=== PATIENT | female | born 1995 | race African-American/Black ===

== ENCOUNTER 2020-04-22 19:20 | Outpatient (CLI) | payer BC ==
[2020-04-22 20:05] LABS: BASOPHILS # (AUTO) 0.1 /CMM (0.0-0.2); BASOPHILS % (AUTO) 0.9 % (0.0-2.0); EOSINOPHILS % (AUTO) 1.2 % (0.0-6.0); HEMATOCRIT 41 % (33-45); HEMOGLOBIN 13.7 g/dL (11.5-14.8); LYMPHOCYTES # (AUTO) 2.9 /CMM (0.8-4.8); LYMPHOCYTES % (AUTO) 40.1 % (20.0-44.0); MEAN CORPUSCULAR HGB CONC 34 g/dl (31.0-36.0); MEAN CORPUSCULAR VOLUME 91 fL (82-100); MONOCYTES # (AUTO) 0.6 /CMM (0.1-1.30); MONOCYTES % (AUTO) 8.6 % (2.0-12.0); NEUTROPHILS # (AUTO) 3.5 /CMM (1.8-8.9); NEUTROPHILS % (AUTO) 49.2 % (43.0-81.0); PLATELET COUNT (AUTO) 340 /CMM (150-450); RED BLOOD CELL COUNT(AUTO) 4.51 MIL/uL (4.0-5.2); WHITE BLOOD COUNT (AUTO) 7.2 K/uL (4.3-11.0)
[2020-04-22 20:25] LABS: ALBUMIN 3.9 g/dL (3.4-5.0); BILIRUBIN,TOTAL 0.2 mg/dL (0.2-1.0); CALCIUM, SERUM 8.9 mg/dL (8.5-10.1); CREATININE 0.9 mg/dL (0.6-1.3); POTASSIUM 4.2 mmol/L (3.5-5.1); TOTAL PROTEIN, SERUM 7.7 g/dL (6.4-8.2)
[2020-04-22 20:34] LABS: THYROID STIMULATING HORMONE 1.578 uIU/mL (0.358-3.74)
== END 2020-04-22 23:56 | disposition home or self-care (01) ==
LOC: LAB 19:20
PROVIDERS: ATTEND Family Medicine
DX: Z00.01 Encounter for general adult medical examination with abnormal findings (principal); Z11.3 Encounter for screening for infections with a predominantly sexual mode of transmission; E55.9 Vitamin D deficiency, unspecified
CPT/HCPCS: 36415; 80053-TC; 80061-TC; 82306; 84439-TC; 84443-TC; 85025-TC; 86592; 87491; 87591; 87806

== ENCOUNTER 2020-05-31 19:15 | Emergency (ER) | payer BC, OTHER ==
[~2020-05-31] VITALS: Ht 154.9 cm; Wt 111.1 kg
--- NOTE | 2020-05-31 19:20 | NUR ---
BIBSELF C/O LOWER BACK PAIN RADIATING TO R HIP X 8HR S/P HEAVY LIFTING WHILE CLEANING. NO MEDS ROTOR WINDER. 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 NAD NOTED, AWAITING MD SANTOS.
--- NOTE | 2020-05-31 19:55 | NUR ---
ANGELINA SYLVESTER AT BEDSIDE
--- NOTE | 2020-05-31 19:56 | NUR ---
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
[2020-05-31] MEDS ORDERED: DEXAMETHASONE SOD PHOSPHATE 10 MG/ML VIAL IM ONE (20:00)
[2020-05-31] MEDS ORDERED: KETOROLAC TROMETHAMINE INJ 60 MG/2 ML VIAL IM ONE ×2 (20:00→20:15)
[2020-05-31] MEDS ORDERED: CYCLOBENZAPRINE 10 MG TABLET PO ONE (20:00)
[2020-05-31] MEDS ORDERED: CYCLOBENZAPRINE 10 MG TABLET ONE (20:03)
[2020-05-31] MEDS ORDERED: DEXAMETHASONE SOD PHOSPHATE 10 MG/ML VIAL ONE (20:03)
[2020-05-31] MEDS ORDERED: HYDROCODONE/APAP 5/325MG TABLET PO ONE (21:00)
[2020-05-31] MEDS ORDERED: HYDROCODONE/APAP 5/325MG TABLET ONE (21:08)
--- NOTE | 2020-05-31 22:04 | NUR ---
Patient discharged to home in stable condition. Written and verbal after care instructions given. Patient verbalizes understanding of instruction. Instructed not to drive.
[2020-05-31 22:06] VITALS: BP 126/79
== END 2020-05-31 22:07 | disposition home or self-care (01) ==
LOC: ER 19:16
DX: M54.42 Lumbago with sciatica, left side (principal); M54.41 Lumbago with sciatica, right side; M62.830 Muscle spasm of back; Z88.1 Allergy status to other antibiotic agents
CPT/HCPCS: 84703; 96372 ×2; 99284; J1100; J1885

== ENCOUNTER 2021-07-08 04:41 | Emergency (ER) | payer BC, OTHER ==
[~2021-07-08] VITALS: Ht 154.9 cm; Wt 113.4 kg
[2021-07-08 05:00] VITALS: BP 170/94
--- NOTE | 2021-07-08 05:00 | NUR ---
BIBSELF C/O GENERALIZED FATIGUE/WEAKNESS,AND SORETHROAT SINCE 07/04 WELL FEVER SINCE TWO DAYS PRIOR SHE HAS BEEN TREATING WITH TYLENOL. NO N/V, SOB, LOSS OF SMELL/TASTE. HAS NOT BEEN COVID TESTED SINCE ONSET OF SYMPTOMS. BREATHING EVEN AND UNALBORED VITAL SIGNS STABLE. WAS AT BEDSIDE FOR EVAL.
--- NOTE | 2021-07-08 05:30 | NUR ---
COVID SWAB SENT TO LAB
--- NOTE | 2021-07-08 07:12 | NUR ---
Patient discharged to home in stable condition. Written and verbal after care instructions given. Patient verbalizes understanding of instruction. Pt ambulatory with a steady gait
== END 2021-07-08 07:14 | disposition home or self-care (01) ==
LOC: ER 04:44
DX: J02.9 Acute pharyngitis, unspecified (principal); Z20.822 Contact with and (suspected) exposure to COVID-19; R03.0 Elevated blood-pressure reading, without diagnosis of hypertension; Z88.0 Allergy status to penicillin
CPT/HCPCS: 87070; 87426; 87880; 99283; U0003; 86403-TC; C9803

== ENCOUNTER 2022-05-02 18:57 | Emergency (ER) | payer BC, OTHER ==
[~2022-05-02] VITALS: Ht 154.9 cm; Wt 104.3 kg
[2022-05-02 19:27] VITALS: BP 154/88
[2022-05-02] MEDS ORDERED: predniSONE 20 MG TABLET ONE (19:51)
[2022-05-02] MEDS ORDERED: diphenhydrAMINE HCL 25 MG CAPSULE ONE (19:52)
[2022-05-02] MEDS ORDERED: predniSONE 50 MG TABLET PO ONE (20:00)
[2022-05-02] MEDS ORDERED: methylPREDNISolone SOD SUCC 125 MG/2ML VIAL IV ONE (20:00)
[2022-05-02] MEDS ORDERED: diphenhydrAMINE HCL 50 MG/ML VIAL IV ONE (20:00)
[2022-05-02] MEDS ORDERED: diphenhydrAMINE HCL 25 MG CAPSULE PO ONE (20:00)
[2022-05-02] MEDS ORDERED: PRED50TA PO (20:21)
--- NOTE | 2022-05-02 20:28 | NUR ---
Patient discharged to home in stable condition. Written and verbal after care instructions given. Patient verbalizes understanding of instruction.
== END 2022-05-02 20:30 | disposition home or self-care (01) ==
LOC: ER 18:59
DX: T78.40XA Allergy, unspecified, initial encounter (principal); L50.9 Urticaria, unspecified; Z79.899 Other long term (current) drug therapy; X58.XXXA Exposure to other specified factors, initial encounter
CPT/HCPCS: 99283; Q0163; J7512

== ENCOUNTER 2022-08-10 00:40 | Emergency (ER) | payer BC, OTHER ==
[~2022-08-10] VITALS: Ht 154.9 cm; Wt 68.0 kg
[~2022-08-10 00:40] MED LIST: PRED50TA PO
[2022-08-10] MEDS ORDERED: CLIN300C3 PO (00:43)
[2022-08-10 00:45] VITALS: BP 132/70
== END 2022-08-10 00:48 | disposition home or self-care (01) ==
LOC: ER 00:42
DX: K08.89 Other specified disorders of teeth and supporting structures (principal); Z88.0 Allergy status to penicillin; Z79.899 Other long term (current) drug therapy